=== PATIENT | female | born 1970 | race Caucasian/White ===

== ENCOUNTER 2023-03-24 12:16 | Inpatient (IN) ==
[2023-03-24] MEDS ORDERED: OLANZapine 10 mg TAB*ODT PO ONE (13:50)
[2023-03-24 14:16] LABS: ABS Lymphocytes 1.6 10^3/uL (1.0-4.8); ABS Monocytes 0.5 10^3/uL (0.0-0.9); Eosinophil % 0.1 %; Hemoglobin 13.6 g/dL (11.5-14.3); Mean Corpuscular Hemoglobin 32.2 pg (27-33); Mean Corpuscular Hgb Conc 33.9 g/dL (31-36); Mean Corpuscular Volume 94.9 fL (80-97); Mean Platelet Volume 9.3 fL (7.5-11.2); Platelet Count 245 10^3/uL (150-450); Red Blood Count 4.21 10^6/uL (3.63-4.92); Red Cell Distribution Width 14.3 % (12-17); White Blood Count 7.2 10^3/uL (3.8-11.8)
[2023-03-24 15:33] LABS: Urine Appearance Turbid; Urine Bilirubin Negative (Negative); Urine Blood 1+ (Negative); Urine Color Amber; Urine Glucose Negative (Negative); Urine Ketones Negative (Negative); Urine Nitrite Positive (Negative); Urine Protein Negative (Negative); Urine Specific Gravity 1.013 (1.002-1.030); Urine Urobilinogen Negative (Negative)
[2023-03-24 15:35] LABS: ALT 9 U/L (7-52); AST 20 U/L (13-39); Albumin 4.8 g/dL (3.2-5.2); Albumin/Globulin Ratio 1.8 (1-3); Alkaline Phosphatase 64 U/L (35-149); Anion Gap 6 mmol/L (2-16); Blood Urea Nitrogen 10 mg/dL (6-24); CO2 Carbon Dioxide 30 mmol/L (22-32); Calcium 9.9 mg/dL (8.6-10.3); Chloride 104 mmol/L (101-111); Creatinine, Serum 0.81 mg/dL (0.51-0.95); Globulin 2.6 g/dL (2-4); Glucose 103 mg/dL (70-100); Potassium 4.5 mmol/L (3.5-5.0); Sodium 140 mmol/L (135-145); Total Bilirubin 0.4 mg/dL (0.2-1.0); Total Protein 7.4 g/dL (6.4-8.9); eGFR CKD-EPI 88.4 (>60)
[2023-03-24 15:37] LABS: HCG Pregnancy 2.45 mIU/mL
[2023-03-24 15:38] LABS: Acetaminophen < 15 mcg/mL; Alcohol, S < 13 mg/dL (<13); Salicylate < 2.50 mg/dL (<30)
[2023-03-24 15:45] LABS: TSH Ultra Thyroid Stim Horm 1.14 mcIU/mL (0.34-5.60)
[2023-03-24 15:53] LABS: Urine Bacteria 1+ (Absent); Urine Red Blood Cell 1+(3-5/hpf) (Absent); Urine Squamous Epithelial Cell Present (Absent); Urine White Blood Cell 3+(>20/hpf) (Absent)
[2023-03-24 16:03] LABS: Urine Benzodiazepine Screen None Detected (None Detect); Urine Cannabinoids Screen Presumptive Positive (None Detect); Urine Opiates Screen None Detected (None Detect)
[2023-03-24 17:03] LABS: High Sensitivity Troponin 1 Hr < 3 pg/mL (<15)
[2023-03-24] MEDS ORDERED: Al Hydrox/Mg Hydrox/Simet LIQ 30 ML UDC PO PRN (18:35)
[2023-03-25 08:39] LABS: HDL Cholesterol 59.6 mg/dL
[2023-03-25] MEDS ORDERED: CMCS:Atomoxetine 40 mg CAP (NF) PO SCH (09:00)
[2023-03-25] MEDS ORDERED: Venlafaxine XR 75 mg PO SCH (09:00)
[2023-03-25] MEDS: Nicotine PATCH 14 MG/24 HR PATCH TRANSDERM SCH (11:45)
[2023-03-25] MEDS: Vitamin THERAPEUTIC TAB PO SCH (11:45)
[2023-03-26] MEDS: Nicotine PATCH 14 MG/24 HR PATCH TRANSDERM SCH (08:30)
[2023-03-26] MEDS: Vitamin THERAPEUTIC TAB PO SCH (08:31)
[2023-03-26] MEDS: Nicotine GUM 2MG FRUIT FLAVOR PO PRN ×3 (12:34→17:26)
[2023-03-27] MEDS: Nicotine GUM 2MG FRUIT FLAVOR PO PRN ×4 (05:59→15:31)
[2023-03-27] MEDS: Nicotine PATCH 14 MG/24 HR PATCH TRANSDERM SCH (08:05)
[2023-03-27] MEDS: Vitamin THERAPEUTIC TAB PO SCH (08:05)
[2023-03-27] MEDS: Nicotine Lozenge mini 2 MG LOZNG.MINI MT PRN (17:32)
[2023-03-28] MEDS: Nicotine PATCH 14 MG/24 HR PATCH TRANSDERM SCH (08:01)
[2023-03-28] MEDS: Vitamin THERAPEUTIC TAB PO SCH (08:01)
[2023-03-28] MEDS: Nicotine Lozenge mini 2 MG LOZNG.MINI MT PRN ×3 (09:52→15:20)
[2023-03-28] MEDS: Nicotine GUM 2MG FRUIT FLAVOR PO PRN (19:55)
[2023-03-28] MEDS ORDERED: Polyethylene Glycol 3350 17 GM PACKET PO PRN (21:05)
[2023-03-29] MEDS: Nicotine PATCH 14 MG/24 HR PATCH TRANSDERM SCH (08:09)
[2023-03-29] MEDS: Vitamin THERAPEUTIC TAB PO SCH (08:10)
[2023-03-29] MEDS: Nicotine GUM 2MG FRUIT FLAVOR PO PRN ×3 (08:42→16:29)
[2023-03-29] MEDS: Senna TAB 8.6 mg TAB PO PRN (16:28)
[2023-03-30] MEDS: Vitamin THERAPEUTIC TAB PO SCH (08:36)
[2023-03-30] MEDS: Nicotine PATCH 14 MG/24 HR PATCH TRANSDERM SCH (08:36)
[2023-03-30] MEDS: Nicotine Lozenge mini 2 MG LOZNG.MINI MT PRN ×5 (09:02→18:35)
[2023-03-30] MEDS: Senna TAB 8.6 mg TAB PO PRN (20:10)
[2023-03-31] MEDS: Vitamin THERAPEUTIC TAB PO SCH (08:49)
[2023-03-31] MEDS: Nicotine PATCH 14 MG/24 HR PATCH TRANSDERM SCH (08:49)
[2023-03-31] MEDS ORDERED: Paliperidone SUSTENNA 234 MG/1.5 ML IM ONE (11:21)
[2023-03-31] MEDS: Nicotine Lozenge mini 2 MG LOZNG.MINI MT PRN ×3 (12:15→17:52)
[2023-04-01] MEDS: Nicotine PATCH 14 MG/24 HR PATCH TRANSDERM SCH (08:22)
[2023-04-01] MEDS: Vitamin THERAPEUTIC TAB PO SCH (08:22)
[2023-04-01] MEDS: Nicotine Lozenge mini 2 MG LOZNG.MINI MT PRN ×3 (09:04→17:23)
[2023-04-01] MEDS: Nicotine GUM 2MG FRUIT FLAVOR PO PRN (10:48)
[2023-04-02] MEDS: Nicotine PATCH 14 MG/24 HR PATCH TRANSDERM SCH (08:03)
[2023-04-02] MEDS: Vitamin THERAPEUTIC TAB PO SCH (08:04)
[2023-04-02] MEDS: Nicotine Lozenge mini 2 MG LOZNG.MINI MT PRN ×4 (08:33→18:24)
[2023-04-03] MEDS: Vitamin THERAPEUTIC TAB PO SCH (07:47)
[2023-04-03] MEDS: Nicotine PATCH 14 MG/24 HR PATCH TRANSDERM SCH (07:47)
[2023-04-03] MEDS: Nicotine Lozenge mini 2 MG LOZNG.MINI MT PRN ×2 (08:36→12:34)
[2023-04-03 08:58] VITALS: BP 122/86
[2023-04-03] MEDS ORDERED: Paliperidone SUSTENNA 156 MG/1 ML IM ONE (10:00)
== END 2023-04-03 13:00 | disposition home or self-care (01) | DRG 885 ==
LOC: ED 12:16 → EDHOLD 17:42 → BSU 18:35
PROVIDERS: ADMIT Psychiatry & Neurology Psychiatry; ATTEND Student in an Organized Health Care Education/Training Program